=== PATIENT | female | born 1970 | race Caucasian/White ===

== ENCOUNTER 2017-11-30 16:10 | Outpatient (CLI) | payer OTHER ==
[2017-11-30 22:51] LABS: DIRECT BILIRUBIN <0.2 mg/dL (<0.4); TOTAL PROTEIN 6.8 g/dL (6.0-8.5)
== END 2017-11-30 16:30 ==
LOC: LAB 16:10
PROVIDERS: ATTEND Physician Assistant
DX: B35.1 Tinea unguium (principal)
CPT/HCPCS: 36415; 80076